=== PATIENT | female | born 1990 | race Caucasian/White ===

== ENCOUNTER 2019-09-16 07:45 | Emergency (ER) | payer MEDICAID, SELFPAY ==
[2019-09-16 07:48] VITALS: BP 129/82; PULSE 68; RESP 18; TEMP 36.4; O2SAT 100
[2019-09-16 08:17] LABS: Add Urine Microscopic? YES; Appearance Urine Clear (Clear); Bacteria Urine Trace /hpf; Bilirubin Urine Negative (Negative); Blood Urine 3+ (Negative); Color Urine Yellow (Yellow); Glucose Urine UA Negative (Negative); Ketones Urine Negative (Negative); Leukocyte Esterase Ur Negative LEU/UL (Negative); Mucus Urine Rare /lpf; Nitrate Urine Negative (Negative); Protein Urine Negative (Negative); RBC Urine 0-2 /hpf (0-2); Squamous Epithelial Cell Urine Occasional /hpf (Few); Urobilinogen Urine Negative mg/dL (<2.0); WBC Urine 0-3 /hpf
[2019-09-16 08:22] LABS: Basophils Percent Auto 0.5 % (0.2-1.2); Eosinophils Absolute Auto 0.2 K/mm3 (0-0.3); Eosinophils Percent Auto 2.8 % (0-4.4); Hematocrit 45.8 % (37.0-47.0); Immature Granulocyte Absolute 0.02 K/mm3 (0.00-0.031); Immature Granulocyte Percent A 0.3 % (0-0.5); Lymphocytes Percent Auto 49.5 % (18.3-44.2); Mean Corpuscular HGB Conc 34.9 g/dl (32-36); Mean Corpuscular Hemoglobin 33.8 pg (26-34); Mean Corpuscular Volume 96.8 fl (80-100); Mean Platelet Volume 9.8 fl (7.4-10.4); Monocytes Absolute Auto 0.5 K/mm3 (0.1-0.6); Monocytes Percent Auto 7.1 % (2.6-8.5); Neutrophils Percent Auto 39.8 % (45.5-73.1); Platelet Count Result 216 k/mm3 (150-375); Red Blood Count 4.73 M/mm3 (4.2-5.4); Red Cell Distribution Width 12.1 % (11.5-14.5); White Blood Count 7.5 K/mm3 (4.5-10.0)
[2019-09-16 08:35] LABS: Anion Gap 8 mmol/L (8-16); Blood Urea Nitrogen 14 mg/dL (7-17); Calcium 9.2 mg/dL (8.4-10.2); Carbon Dioxide 28 mmol/L (22-30); Chloride 101 mmol/L (98-107); Estimated CRCL calculation 83 ml/min; Estimated Glomerular Filt Rate > 60; Glucose 114 mg/dL (65-105); Potassium 3.9 mmol/L (3.4-5.0); Sodium 137 mmol/L (137-145)
--- NOTE | 2019-09-16 08:35 | ED.GENADULT ---
HPI - General Adult General Chief complaint: [employer] Stated complaint: vag bleeding, cramping Time Seen by Provider: 09/16/19 07:59 Source: patient Mode of arrival: ambulatory History of Present Illness HPI narrative: Patient is a 29 y/o female complaining lower abdominal pain for last 2 days. She describes her pain as cramping and rates it as 10/10. Her pain radiates to pain. She took Tylenol and Ibuprofen which not help. She has some nausea and vomiting, but no diarrhea. She also has light vaginal bleeding, which she states is different from her usual period. She has no fever or dysuria. Related Data Allergies Allergy/AdvReac Type Severity Reaction Status Date / Time doxycycline Allergy Hives Verified 09/16/19 07:51 Penicillins Allergy Hives Verified 09/16/19 07:51 Review of Systems Constitutional: Constitutional: Denies chills, Denies fever(s), Denies headache(s) and Denies weakness Eyes: Eyes: Denies blurry vision ENT: Denies headache(s) and Denies neck pain Cardiovascular: Cardiovascular: Denies chest pain and Denies dyspnea Respiratory: Respiratory: Denies cough and Denies dyspnea Gastrointestinal: Gastrointestinal: Reports abdominal pain, Denies diarrhea, Reports nausea and Reports vomiting Genitourinary: Genitourinary: Reports abnormal vaginal bleeding, Denies hematuria and Denies dysuria Musculoskeletal: Musculoskeletal: Denies back pain and Denies neck pain Neurologic: Denies headache(s) and Denies weakness [facility] Social History Social History Gender identity (if verbalized by the patient): Female Exam Const: General: no acute distress and well developed Orientation/consciousness: oriented to person, oriented to place, oriented to time and patient oriented x3 HENMT: Head: normocephalic Ears: external ears normal General nose exam: Normal external nose present Eyes: General: appearance normal, both eyes and all related structures Conjunctivae: conjunctivae normal Neck: Neck: normal visual inspection and full ROM Chest: Chest palpation & inspection: normal inspection of the chest and no tenderness Resp: Effort & Inspection: normal respiratory effort Auscultation: clear to auscultation bilaterally Cardio: Rate: regular rate Rhythm: regular rhythm GI: GI Palp: No abdominal tenderness and Yes Soft to palpation Skin: General skin exam: normal color and turgor normal Neuro: General: oriented to person, oriented to place, oriented to time and patient oriented x3 Cognition (Neuro): normal cognition Extrem: General: normal to inspection, full ROM and no pedal edema Psych: Appearance: grossly normal Mental Status: mental status grossly normal Affect: normal affect Course Vital Signs Vital signs: Vital Signs Temperature 36.4 C L 09/16/19 07:48 Pulse Rate 68 09/16/19 07:48 Respiratory Rate 18 09/16/19 07:48 Blood Pressure 129/82 09/16/19 07:48 Pulse Oximetry 100 09/16/19 07:48 Temperature 36.4 C L 09/16/19 07:48 Pulse Rate 68 09/16/19 07:48 Respiratory Rate 18 09/16/19 07:48 Blood Pressure 129/82 09/16/19 07:48 Pulse Oximetry 100 09/16/19 07:48 Medical Decision Making Vital Signs Vital Signs: Vital Signs Temperature 36.4 C L 09/16/19 07:48 Pulse Rate 68 09/16/19 07:48 Respiratory Rate 18 09/16/19 07:48 Blood Pressure 129/82 09/16/19 07:48 Pulse Oximetry 100 09/16/19 07:48 Temperature 36.4 C L 09/16/19 07:48 Pulse Rate 68 09/16/19 07:48 Respiratory Rate 18 09/16/19 07:48 Blood Pressure 129/82 09/16/19 07:48 Pulse Oximetry 100 09/16/19 07:48 Lab Data Result diagrams: 09/16/19 08:13 09/16/19 08:13 Labs: Lab Results 09/16/19 09/16/19 09/16/19 Range/Units 08:02 08:13 08:13 WBC 7.5 (4.5-10.0) K/mm3 RBC 4.73 (4.2-5.4) M/mm3 Hgb 16.0 H (12.0-15.0) g/dL Hct 45.8 (37.0-47.0) % MCV 96.8 (80-100) fl MCH
[2019-09-16] MEDS: SODIUM CHLORIDE 0.9% IV 1,000 ML 999 ML IV CONT (08:49)
[2019-09-16] MEDS: KETOROLAC 30 MG/ML VIAL (*BKC) IV PUSH (08:49)
[2019-09-16] MEDS: METOCLOPRAMIDE HCL INJ 10 MG/2 ML VIAL IV PUSH (08:49)
[2019-09-16 09:27] LABS: Barbiturate Screen Urine Negative (Negative); Benzodiazepines Screen Urine Negative (Negative)
[2019-09-16 09:46] LABS: Cannabinoid Screen Urine Positive (Negative); Cocaine Screen Urine Negative (Negative); Methadone Screen Urine Negative (Negative); Opiate Screen Urine Negative (Negative); Phencyclidine Screen Urine Negative (Negative)
[2019-09-16 09:51] LABS: Amphetamine Screen Urine Positive (Negative)
[2019-09-16 11:00] VITALS: BP 113/80; PULSE 60; RESP 18; O2SAT 98
== END 2019-09-16 11:00 | disposition home or self-care (01) ==
PROVIDERS: Emergency Provider Emergency Medicine
DX: N94.6 Dysmenorrhea, unspecified (principal); F12.90 Cannabis use, unspecified, uncomplicated
CPT/HCPCS: 36415; 80048; 80307; 81001; 81025; 85025; 96361; 96374; 96375; 99284; J1885; J2765; J7030